=== PATIENT | male | born 1985 | race Caucasian/White ===

== ENCOUNTER 2020-08-18 21:09 | Emergency (ER) | payer BC ==
[~2020-08-18] VITALS: Ht 177.8 cm; Wt 104.3 kg
[2020-08-18 21:12] VITALS: Ht 177.8 cm; Wt 104.3 kg
[2020-08-19 01:05] VITALS: BP 156/113
== END 2020-08-19 01:05 | disposition home or self-care (01) ==
LOC: ED 21:09
DX: S43.005A Unspecified dislocation of left shoulder joint, initial encounter (principal); V87.8XXA Person injured in other specified noncollision transport accidents involving motor vehicle (traffic), initial encounter; Y93.89 Activity, other specified; Y92.89 Other specified places as the place of occurrence of the external cause; Y99.8 Other external cause status
CPT/HCPCS: J1170; J2001; Q0092

== ENCOUNTER 2020-08-19 03:45 | Emergency (ER) | payer BC ==
[~2020-08-19] VITALS: Ht 177.8 cm; Wt 104.3 kg
[2020-08-19 06:18] VITALS: BP 163/103
== END 2020-08-19 06:18 | disposition home or self-care (01) ==
LOC: ED 03:45
DX: S42.302A Unspecified fracture of shaft of humerus, left arm, initial encounter for closed fracture (principal); S89.92XA Unspecified injury of left lower leg, initial encounter; I10 Essential (primary) hypertension; F15.10 Other stimulant abuse, uncomplicated; W18.39XA Other fall on same level, initial encounter; Y93.89 Activity, other specified; Y92.89 Other specified places as the place of occurrence of the external cause; Y99.8 Other external cause status
CPT/HCPCS: J1885; Q0092